=== PATIENT | male | born 1975 | race Caucasian/White ===

== ENCOUNTER 2017-04-18 16:35 | Emergency (ER) | payer MEDICAID ==
[~2017-04-18] VITALS: Ht 182.9 cm; Wt 76.2 kg
[~2017-04-18 16:35] MED LIST: BACITRACIN15 GM TOPIC; BUPROPION XL150 MG ORAL; GABAPENTIN400 MG ORAL; IBUPROFEN600 MG ORAL; KEPPRA500 M4 ORAL; KLONOPIN1 MG ORAL; TRAZODONE HCL150 MG ORAL; WELLBUTRIN SR100 MG ORAL
[2017-04-18 16:58] VITALS: BP 143/94
[2017-04-18] MEDS ORDERED: KLONOPIN1 MG ORAL (17:59)
[2017-04-18] MEDS ORDERED: WELLBUTRIN XL150 M1 ORAL (17:59)
[2017-04-18] MEDS ORDERED: KEPPRA500 M4 ORAL (17:59)
[2017-04-18 18:21] VITALS: BP 138/87
--- NOTE | 2017-04-18 22:50 | Emergency Room Report ---
History of Present Illness General Chief Complaint: Behavioral Complaint Source: Patient Present Illness HPI The patient is a 42-year-old male with a history of schizophrenia, depression, and seizure disorder presenting for hearing voices. He states that these voices are telling him to hurt himself but he declines wanting to hurt himself and denies suicidal ideation or homicidal ideation. He states he has not seen a psychiatrist for one month and has run out of medications for the past week. He is asking for medication refill. He declines any pain and denies other symptoms including nausea, vomiting, fever, chills Allergies: Coded Allergies: CHLORPROMAZINE (Verified Allergy, Unknown, 02/17/16) HALOPERIDOL (Verified Allergy, Unknown, 02/17/16) ZIPRASIDONE (Verified Allergy, Unknown, 02/17/16) QUETIAPINE (Unverified Adverse Reaction, Unknown, 01/12/16) Patient History Past Medical History: see triage record Pertinent Family History: none Reviewed Nursing Documentation: PMH: Agreed, PSxH: Agreed Nursing Documentation-PMH Past Medical History: No History, Except For Hx Cardiac Problems: No Hx Hypertension: No Hx Pacemaker: No Hx Asthma: No Hx COPD: No Hx Diabetes: No Hx Gastrointestinal Problems: No Hx Dialysis: No History Of Psychiatric Problem: Yes Hx Neurological Problems: No Hx Cerebrovascular Accident: No Hx Seizures: Yes Review of Systems All Other Systems: negative except mentioned in HPI Physical Exam Vital Signs Date Time Temp Pulse Resp B/P Pulse Ox O2 Delivery O2 Flow Rate FiO2 04/18/17 16:50 103 17 143/94 99 Room Air Sp02 EP Interpretation: reviewed, normal General Appearance: no apparent distress, alert, GCS 15, non-toxic Head: normocephalic, atraumatic Eyes: bilateral eye PERRL, bilateral eye normal inspection ENT: hearing grossly normal, normal pharynx, no angioedema, normal voice Respiratory: chest non-tender, lungs clear, normal breath sounds, speaking full sentences Musculoskeletal: back normal, gait/station normal, normal range of motion Neurologic: alert, oriented x3, responsive, sensory intact, normal gait Psychiatric: memory normal, no suicidal/homicidal ideation, depressed affect Skin: normal color, no rash, warm/dry, well hydrated Lymphatic: no adenopathy Medical Decision Making PA Attestation Dr. Tinoco is my supervising physician. Patient management was discussed with my supervising physician Diagnostic Impression: Primary Impression: Behavioral disorder ER Course The patient is a 42-year-old male with a history of schizophrenia, depression, and seizure disorder presenting for hearing voices Differential diagnoses considered but not limited to suicidal ideation, homicidal ideation, depression, drug abuse, psychosis PE: NAD. Depressed affect. A&Ox4. HEENT unremarkable. There are scars on bilateral arms from excoriations The patient is given refill of medications and told to follow up with psychiatry soon as possible. He is given information for [facility] urgent care. He agrees to seek care at this facility as soon as possible. ER precautions given Last Vital Signs Date Time Temp Pulse Resp B/P Pulse Ox O2 Delivery O2 Flow Rate FiO2 04/18/17 18:21 99 17 138/87 99 Room Air Status: improved Disposition: HOME, SELF-CARE Condition: Improved Scripts Clonazepam* (KLONOPIN*) 1 Mg Tablet 1 MG ORAL DAILY, #15 TAB 0 Refills Prov: SUDARSHAN MOONEY.A. 04/18/17 Bupropion HCl (Wellbutrin Xl) 300 Mg Tab.er.24h 150 MG ORAL DAILY, #30 TAB 0 Refills Prov: JANETANSUDARSHAN P.A. 04/18/17 Levetiracetam (KEPPRA) 500 Mg Tablet 500 MG ORAL EVERY 12 HOURS, #60 TAB 0 Refills Prov: TERROMIEANBRYANTY P.A. 04/18/17 Referrals: NOT CHOSEN [facility]/MD,REFERRING (PCP) Patient Instructions: Psychosis Additional Instructions: I discussed my findings with the patient. All questions and concerns have been answered. Treatment and medication compliance have been addressed. I advised the patient that they need to follow up with PMD in 3-5 days. Return to ED if symptoms worsen, new symptoms arise, or if needed for any reason. Patient verbalized understanding of discharge instructions. You were given information to followup at [facility] facility as soon as possible. SUDARSHAN MOONEY Apr 18, 2017 22:50
== END 2017-04-18 18:24 | disposition home or self-care (01) ==
LOC: EMR 17:40
DX: F91.9 Conduct disorder, unspecified (principal); F20.9 Schizophrenia, unspecified; F32.9 Major depressive disorder, single episode, unspecified; G40.909 Epilepsy, unspecified, not intractable, without status epilepticus; Z88.8 Allergy status to other drugs, medicaments and biological substances
CPT/HCPCS: 99284

== ENCOUNTER 2017-08-21 23:15 | Emergency (ER) | payer MEDICAID ==
[~2017-08-21] VITALS: Ht 182.9 cm; Wt 81.6 kg
[~2017-08-21 23:15] MED LIST changes: +WELLBUTRIN XL150 M1 ORAL
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
[2017-08-21 23:46] VITALS: BP 129/78
[2017-08-22] MEDS ORDERED: LORazepam 1mg tab ORAL ONE (00:15)
[2017-08-22 00:53] VITALS: BP 132/70
== END 2017-08-22 00:54 | disposition home or self-care (01) ==
LOC: EDBD 23:15 → EMR 08-22 00:34
DX: S51.802A Unspecified open wound of left forearm, initial encounter (principal); S51.801A Unspecified open wound of right forearm, initial encounter; Y04.2XXA Assault by strike against or bumped into by another person, initial encounter; Y92.410 Unspecified street and highway as the place of occurrence of the external cause; Z88.8 Allergy status to other drugs, medicaments and biological substances
CPT/HCPCS: 99283

== ENCOUNTER 2017-10-07 18:13 | Emergency (ER) | payer MEDICAID, OTHER ==
[~2017-10-07] VITALS: Ht 182.9 cm; Wt 81.6 kg
[2017-10-07] MEDS ORDERED: LORazepam 1mg tab ORAL ONE (18:30)
[2017-10-07] MEDS ORDERED: Bacitracin Oint UD TOPIC ONE (19:45)
[2017-10-07] MEDS ORDERED: ATIVAN0.5 MG ORAL (19:48)
[2017-10-07] MEDS ORDERED: BACITRACIN15 GM TOPIC (19:48)
[2017-10-07 20:03] VITALS: BP 141/87
[2017-10-07 20:04] VITALS: BP 123/80
--- NOTE | 2017-10-07 22:13 | Emergency Room Report ---
History of Present Illness General Chief Complaint: Wound Recheck/Suture Removal Source: Patient, EMS Present Illness HPI The patient is a 42 -year-old male presenting for anxiety and wound check. He has been seen in this emergency department multiple times for the same complaints. The patient picks his skin on his forearms when he is feeling anxious. He states he was unable to see his psychiatrist. He denies any pain at this time. He does admit to itching forearms. He denies any other symptoms including N, V, F, chills, SOB, numbness Allergies: Coded Allergies: CHLORPROMAZINE (Verified Allergy, Unknown, 02/17/16) DIVALPROEX SODIUM (Unverified Allergy, Unknown, 08/21/17) HALOPERIDOL (Verified Allergy, Unknown, 02/17/16) OLANZAPINE (Unverified Allergy, Unknown, 10/07/17) ZIPRASIDONE (Verified Allergy, Unknown, 02/17/16) QUETIAPINE (Unverified Adverse Reaction, Unknown, 01/12/16) Patient History Past Medical History: see triage record, psych hx Pertinent Family History: none Reviewed Nursing Documentation: PMH: Agreed, PSxH: Agreed Nursing Documentation-PMH Past Medical History: No History, Except For Hx Cardiac Problems: No Hx Hypertension: No Hx Pacemaker: No Hx Asthma: No Hx COPD: No Hx Diabetes: No Hx Gastrointestinal Problems: No Hx Dialysis: No History Of Psychiatric Problem: Yes - Anxiety Hx Neurological Problems: No Hx Cerebrovascular Accident: No Hx Seizures: Yes Review of Systems All Other Systems: negative except mentioned in HPI Physical Exam Vital Signs Date Time Temp Pulse Resp B/P (MAP) Pulse Ox O2 Delivery O2 Flow Rate FiO2 10/07/17 18:05 98.2 81 16 123/80 99 Sp02 EP Interpretation: reviewed, normal General Appearance: no apparent distress, alert, GCS 15, non-toxic Head: normocephalic, atraumatic Eyes: bilateral eye normal inspection, bilateral eye PERRL ENT: hearing grossly normal, normal pharynx, no angioedema, normal voice Respiratory: chest non-tender, lungs clear, normal breath sounds, speaking full sentences Cardiovascular #1: regular rate, rhythm, no edema Musculoskeletal: back normal, gait/station normal, normal range of motion, tender - bilat arms Neurologic: alert, oriented x3, responsive, motor strength/tone normal, sensory intact, speech normal Psychiatric: judgement/insight normal, memory normal, anxious Skin: other - bilat lateral forearms have open wounds Lymphatic: no adenopathy Medical Decision Making PA Attestation Dr. Maldonado is my supervising physician. Patient management was discussed with my supervising physician Diagnostic Impression: Primary Impression: Acute anxiety Additional Impression: Open wound ER Course The patient is a 42 -year-old male presenting for anxiety and wound check Ddx considered include but not limited to cellulitis, abrasion, chronic open wound, anxiety, among others PE: Afebrile. NAD Bilateral forearms have chronic open wounds of the lateral aspects. No bleeding. No discharge.Full active range of motion of the wrist and fingers are intact The patient is given Benadryl and Ativan to control itching and to help with anxiety in the emergency department. He is feeling better. The wounds are cleaned and bacitracin was applied He is discharged home and is to follow up with psychiatry. He is given information for [facility]. ER precautions are given Last Vital Signs Date Time Temp Pulse Resp B/P (MAP) Pulse Ox O2 Delivery O2 Flow Rate FiO2 10/07/17 20:04 98.2 16 123/80 99 10/07/17 20:03 88 Status: improved Disposition: HOME, SELF-CARE Condition: Improved Scripts Lorazepam* (ATIVAN*) 0.5 Mg Tablet 0.5 MG ORAL THREE TIMES A DAY, #5 TAB Prov: SUDARSHAN MOONEY.A. 10/07/17 Bacitracin (Bacitracin) 28.4 Gm Oint...g. 1 APPLIC TOPIC THREE TIMES A DAY, #28 GM Prov: SUDARSHAN MOONEY.A. 10/07/17 Referrals: NOT CHOSEN IPA/MD,REFERRING (PCP) Patient Instructions: Panic Attacks, Wound Check Additional Instructions: I discussed my findings with the patient. All questions and concerns have been answered. Treatment and medication compliance have been addressed. Return to ED if symptoms worsen, new symptoms arise, or if needed for any reason. Patient verbalized understanding of discharge instructions. The patient was told he needs to followup with psychiatry and primary doctor soon as possible SUDARSHAN MOONEY Oct 07, 2017 22:13
== END 2017-10-07 20:04 | disposition home or self-care (01) ==
LOC: EDBD 18:13 → EMR 19:50
DX: F41.9 Anxiety disorder, unspecified (principal); S51.802D Unspecified open wound of left forearm, subsequent encounter; S51.801D Unspecified open wound of right forearm, subsequent encounter; X58.XXXD Exposure to other specified factors, subsequent encounter; Z88.8 Allergy status to other drugs, medicaments and biological substances
CPT/HCPCS: 99284

== ENCOUNTER 2018-05-08 17:20 | Emergency (ER) | payer OTHER ==
[~2018-05-08] VITALS: Ht 172.7 cm; Wt 63.5 kg
[~2018-05-08 17:20] MED LIST changes: +ATIVAN0.5 MG ORAL
[2018-05-08 17:31] VITALS: BP 98/57
[2018-05-08] MEDS ORDERED: Haloperidol 5mg/ml Inj ONE (17:43)
[2018-05-08] MEDS ORDERED: LORazepam Inj 2mg/ml 1ml ONE (17:44)
--- NOTE | 2018-05-08 17:56 | Emergency Room Report ---
History of Present Illness General Chief Complaint: Behavioral Complaint Source: Patient Present Illness HPI 43-year-old male has a history of anxiety and depression, bipolar disorder, presenting with suicidal ideation. EMS states that they've found him outside a [employer] store, he was using a nail to cut himself. Patient currently stating that voices are telling him to kill himself and that he wants to kill himself. No actual plan but states that he wants to continue cutting himself because he feels very anxious. Tetanus is up-to-date Allergies: Coded Allergies: CHLORPROMAZINE (Verified Allergy, Unknown, 02/17/16) DIVALPROEX SODIUM (Unverified Allergy, Unknown, 08/21/17) HALOPERIDOL (Verified Allergy, Unknown, 02/17/16) OLANZAPINE (Unverified Allergy, Unknown, 10/07/17) ZIPRASIDONE (Verified Allergy, Unknown, 02/17/16) QUETIAPINE (Unverified Adverse Reaction, Unknown, 01/12/16) Patient History Past Medical History: see triage record Past Surgical History: none Pertinent Family History: none Reviewed Nursing Documentation: PMH: Agreed; PSxH: Agreed Nursing Documentation-PMH Past Medical History: No History, Except For Hx Cardiac Problems: No Hx Hypertension: No Hx Pacemaker: No Hx Asthma: No Hx COPD: No Hx Diabetes: No Hx Cancer: No Hx Gastrointestinal Problems: No Hx Dialysis: No History Of Psychiatric Problem: Yes - Schizophrenia, Bipolar Hx Neurological Problems: No Hx Cerebrovascular Accident: No Hx Seizures: No Review of Systems All Other Systems: negative except mentioned in HPI Physical Exam Vital Signs Date Time Temp Pulse Resp B/P (MAP) Pulse Ox O2 Delivery O2 Flow Rate FiO2 05/08/18 17:24 97.5 95 14 98/57 96 Room Air 97.5 Sp02 EP Interpretation: reviewed, normal General Appearance: normal inspection, well appearing, no apparent distress, alert, GCS 15, non-toxic Head: normocephalic, atraumatic Eyes: bilateral eye normal inspection, bilateral eye PERRL, bilateral eye EOMI ENT: normal ENT inspection, normal pharynx, normal voice, moist mucus membranes Neck: normal inspection, full range of motion, supple Respiratory: normal inspection, lungs clear, normal breath sounds, no respiratory distress, no retraction, no wheezing, speaking full sentences, chest symmetrical Cardiovascular #1: normal inspection, regular rate, rhythm, normal capillary refill Cardiovascular #2: 2+ radial (R), 2+ radial (L) Gastrointestinal: normal inspection, non tender, soft, non-distended, no guarding Genitourinary: no CVA tenderness Musculoskeletal: other - Bilateral arms with new and old scars, right forearm noted to have a large 6 cm linear superficial laceration, left forearm noted to have a 3 cm superficial laceration/abrasion, also with old healed scars on bilateral arms Neurologic: normal inspection, alert, oriented x3, responsive, motor strength/ tone normal, sensory intact, normal gait, speech normal Psychiatric: depressed affect, anxious, other - +si Skin: normal inspection, normal color, no rash, warm/dry, well hydrated, normal turgor Medical Decision Making Diagnostic Impression: Primary Impression: Suicidal ideation Additional Impressions: Self-inflicted injury Superficial laceration ER Course 43-year-old male with suicidal ideation also noted to have multiple cuts on arms DDX: Suicidal ideation, superficial abrasions Plan: Patient on 5150 hold, we will perform routine labs, wound care, bacitracin, sterile dressing, antibiotics ER course: Patient given 2 mg IM Ativan labs unremarkable Disposition: Signed out to Dr Hendrickson 43 yo M with SI, on hold pending placement patient is medically cleared Please note that this Emergency Department Report was dictated using [employer] technology software, occasionally this can lead to erroneous entry secondary to interpretation by the dictation equipment Laboratory Tests Test 05/08/18 18:15 White Blood Count 6.7 K/UL (4.8-10.8) Red Blood Count 5.12 M/UL (4.70-6.10) Hemoglobin 10.1 G/DL (14.2-18.0) L Hematocrit 33.4 % (42.0-52.0) L Mean Corpuscular Volume 65 FL (80-99) L Mean Corpuscular Hemoglobin 19.7 PG (27.0-31.0) L Mean Corpuscular Hemoglobin Concent 30.2 G/DL (32.0-36.0) L Red Cell Distribution Width 16.3 % (11.6-14.8) H Platelet Count 446 K/UL (150-450) Mean Platelet Volume 4.8 FL (6.5-10.1) L Neutrophils (%) (Auto) 58.3 % (45.0-75.0) Lymphocytes (%) (Auto) 29.8 % (20.0-45.0) Monocytes (%) (Auto) 6.9 % (1.0-10.0) Eosinophils (%) (Auto) 4.4 % (0.0-3.0) H Basophils (%) (Auto) 0.6 % (0.0-2.0) Urine Color Pale yellow Urine Appearance Clear Urine pH 5 (4.5-8.0) Urine Specific [place] 1.015 (1.005-1.035) Urine Protein Negative (NEGATIVE) Urine Glucose (UA) Negative (NEGATIVE) Urine Ketones Negative (NEGATIVE) Urine Occult Blood 1+ (NEGATIVE) H Urine Nitrite Negative (NEGATIVE) Urine Bilirubin Negative (NEGATIVE) Urine Urobilinogen Normal MG/DL (0.0-1.0) Urine Leukocyte Esterase Negative (NEGATIVE) Urine RBC 0-2 /HPF (0 - 0) H Urine WBC 0-2 /HPF (0 - 0) Urine Squamous Epithelial Cells None /LPF (NONE/OCC) Urine Bacteria Few /HPF (NONE) Sodium Level 134 MMOL/L (136-145) L Potassium Level 3.9 MMOL/L (3.5-5.1) Chloride Level 100 MMOL/L (98-107) Carbon Dioxide Level 27 MMOL/L (21-32) Anion Gap 8 mmol/L (5-15) Blood Urea Nitrogen 13 mg/dL (7-18) Creatinine 0.8 MG/DL (0.55-1.30) Estimate Glomerular Filtration Rate > 60 mL/min (>60) Glucose Level 97 MG/DL (74-106) Calcium Level 9.5 MG/DL (8.5-10.1) Total Bilirubin 0.2 MG/DL (0.2-1.0) Aspartate Amino Transferase (AST) 51 U/L (15-37) H Alanine Aminotransferase (ALT) 86 U/L (12-78) H Alkaline Phosphatase 86 U/L (46-116) Total Creatine Kinase 217 U/L (26-308) Total Protein 9.5 G/DL (6.4-8.2) H Albumin 3.9 G/DL (3.4-5.0) Globulin 5.6 g/dL Albumin/Globulin Ratio 0.7 (1.0-2.7) L Salicylates Level 0.9 ug/mL (2.8-20) L Urine Opiates Screen Negative (NEGATIVE) Acetaminophen Level < 2 MCG/ML (10-30) L Urine Barbiturates Screen Negative (NEGATIVE) Phencyclidine (PCP) Screen Negative (NEGATIVE) Urine Amphetamines Screen Positive (NEGATIVE) H Urine Benzodiazepines Screen Negative (NEGATIVE) Urine Cocaine Screen Negative (NEGATIVE) Urine Marijuana (THC) Screen Negative (NEGATIVE) Serum Alcohol < 3 mg/dL Last Vital Signs Date Time Temp Pulse Resp B/P (MAP) Pulse Ox O2 Delivery O2 Flow Rate FiO2 05/08/18 17:31 97.5 76 14 98/57 98 Room Air 97.5 Disposition: XFER SHT-TRM HOSP Condition: Serious Referrals: NOT CHOSEN MARYCARMEN/,REFERRING (PCP) Felipa Maldonado M.D. May 08, 2018 17:56
[2018-05-08] MEDS ORDERED: LORazepam Inj 2mg/ml 1ml IM ONE (18:00)
[2018-05-08] MEDS ORDERED: ceFAZolin sod 1 GM in D5W 110 ML IVPB SCH (18:00)
[2018-05-08] MEDS ORDERED: ceFAZolin 1gm/50ml Premix 50 ML IV ONE (18:00)
[2018-05-08] MEDS ORDERED: DiphenhydrAMINE 50mg/ml Inj ONE (18:06)
[2018-05-08] MEDS ORDERED: DiphenhydrAMINE 50mg/ml Inj IVP ONE (18:15)
[2018-05-08 18:46] LABS: APPEARANCE,URINE CLEAR; BASOPHILS % (AUTO) 0.6 % (0.0-2.0); BILIRUBIN, URINE NEGATIVE (NEGATIVE); COLOR,URINE PALE YELLOW; EOSINOPHILS % (AUTO) 4.4 % (0.0-3.0); GLUCOSE, URINE (UA) NEGATIVE (NEGATIVE); HEMATOCRIT 33.4 % (42.0-52.0); HEMOGLOBIN 10.1 G/DL (14.2-18.0); KETONES,URINE NEGATIVE (NEGATIVE); LEUKOCYTE ESTERASE ,URINE NEGATIVE (NEGATIVE); LYMPHOCYTES % (AUTO) 29.8 % (20.0-45.0); MEAN CORPUSCULAR VOLUME 65 FL (80-99); MONOCYTES % (AUTO) 6.9 % (1.0-10.0); NEUTROPHILS % (AUTO) 58.3 % (45.0-75.0); NITRITE,URINE NEGATIVE (NEGATIVE); PH,URINE 5 (4.5-8.0); PLATELET COUNT 446 K/UL (150-450); PROTEIN,URINE NEGATIVE (NEGATIVE); RED BLOOD COUNT 5.12 M/UL (4.70-6.10); RED CELL DISTRIBUTION WIDTH 16.3 % (11.6-14.8); UROBILINOGEN,URINE NORMAL MG/DL (0.0-1.0); WHITE BLOOD COUNT 6.7 K/UL (4.8-10.8)
[2018-05-08 18:53] LABS: ANION GAP 8 mmol/L (5-15); BLOOD UREA NITROGEN 13 mg/dL (7-18); CALCIUM 9.5 MG/DL (8.5-10.1); CARBON DIOXIDE 27 MMOL/L (21-32); CHLORIDE 100 MMOL/L (98-107); CREATININE 0.8 MG/DL (0.55-1.30); POTASSIUM 3.9 MMOL/L (3.5-5.1); SODIUM 134 MMOL/L (136-145)
[2018-05-08 18:57] LABS: ALANINE AMINOTRANSFERASE 86 U/L (12-78); ALBUMIN 3.9 G/DL (3.4-5.0); ALBUMIN/GLOBULIN RATIO 0.7 (1.0-2.7); ALKALINE PHOSPHATASE 86 U/L (46-116); ASPARTATE AMINO TRANSFERASE 51 U/L (15-37); BILIRUBIN,TOTAL 0.2 MG/DL (0.2-1.0); CREATINE KINASE 217 U/L (26-308)
[2018-05-08 20:12] VITALS: BP 102/45
[2018-05-08 23:00] VITALS: BP 112/56
[2018-05-09 00:04] VITALS: BP 107/52
[2018-05-09 03:00] VITALS: BP 113/60
[2018-05-09 05:45] VITALS: BP 107/65
[2018-05-09 07:20] VITALS: BP 110/68
[2018-05-09] MEDS ORDERED: Bacitracin Oint UD TOPIC ONE (09:30)
[2018-05-09 11:55] VITALS: BP 118/60
[2018-05-09 12:29] VITALS: BP 118/60
== END 2018-05-09 12:30 | disposition short-term general hospital (02) ==
LOC: EDBD 17:20 → EMR 17:32
DX: R45.851 Suicidal ideations (principal); S51.812A Laceration without foreign body of left forearm, initial encounter; X83.8XXA Intentional self-harm by other specified means, initial encounter; Y92.89 Other specified places as the place of occurrence of the external cause; F20.9 Schizophrenia, unspecified; F31.9 Bipolar disorder, unspecified
CPT/HCPCS: 36415; 80053; 80307; 81003; 82550; 85025; 96365; 96372; 96374; 96375; 99284; G0480; J0690; J1200; 80329

== ENCOUNTER 2018-05-31 16:00 | Emergency (ER) | payer SELFPAY ==
[~2018-05-31] VITALS: Ht 175.3 cm; Wt 77.1 kg
[2018-05-31 16:00] VITALS: BP 126/80
[~2018-05-31 16:00] MED LIST changes: +BUPROPION XL300 MG ORAL; +KEPPRA XR500 MG ORAL
[2018-05-31 16:45] VITALS: BP 126/80
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
[2018-05-31] MEDS ORDERED: BACITRACIN-P28.35 GM TP (16:46)
== END 2018-05-31 16:45 | disposition home or self-care (01) ==
LOC: EDBD 16:00 → MERGE 16:30 → EMR 16:30
DX: L98.1 Factitial dermatitis (principal); F91.8 Other conduct disorders
CPT/HCPCS: 99283

== ENCOUNTER 2020-03-01 01:27 | Emergency (ER) | payer SELFPAY ==
[~2020-03-01] VITALS: Ht 177.8 cm; Wt 81.6 kg
[~2020-03-01 01:27] MED LIST changes: +BACITRACIN-P28.35 GM TP
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
--- NOTE | 2020-03-01 01:45 | NUR ---
ED Nurse Note: PT BELONGING REMOVED AND PLACED IN LOCKER #1.
[2020-03-01 02:00] VITALS: BP 139/88
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
[2020-03-01] MEDS ORDERED: LORazepam Inj 2mg/ml 1ml IV ONE (02:15)
[2020-03-01] MEDS ORDERED: LORazepam 1mg tab ORAL ONE (02:15)
[2020-03-01] MEDS ORDERED: Bacitracin Oint 15gm Tube TOPIC ONE ×2 (03:30→07:16)
--- NOTE | 2020-03-01 03:30 | NUR ---
ED Nurse Note: urine collected and sent to lab
--- NOTE | 2020-03-01 03:40 | NUR ---
ED Nurse Note: patient is calm and sleeping. could not collect blood at this time. will attempt at a later time.
[2020-03-01 03:50] LABS: APPEARANCE,URINE CLEAR; BILIRUBIN, URINE NEGATIVE (NEGATIVE); GLUCOSE, URINE (UA) NEGATIVE (NEGATIVE); KETONES,URINE 1+ (NEGATIVE); LEUKOCYTE ESTERASE ,URINE 1+ (NEGATIVE); NITRITE,URINE NEGATIVE (NEGATIVE); PH,URINE 5 (4.5-8.0); PROTEIN,URINE NEGATIVE (NEGATIVE); UROBILINOGEN,URINE NORMAL MG/DL (0.0-1.0)
[2020-03-01 03:51] LABS: COLOR,URINE YELLOW
--- NOTE | 2020-03-01 04:05 | NUR ---
ED Nurse Note: blood drawn and sent to lab
[2020-03-01 04:43] LABS: BASOPHILS % (AUTO) 0.7 % (0.0-2.0); EOSINOPHILS % (AUTO) 3.5 % (0.0-3.0); HEMATOCRIT 31.8 % (42.0-52.0); HEMOGLOBIN 10.3 G/DL (14.2-18.0); LYMPHOCYTES % (AUTO) 28.4 % (20.0-45.0); MEAN CORPUSCULAR VOLUME 71 FL (80-99); MONOCYTES % (AUTO) 8.9 % (1.0-10.0); NEUTROPHILS % (AUTO) 58.6 % (45.0-75.0); PLATELET COUNT 333 K/UL (150-450); RED BLOOD COUNT 4.45 M/UL (4.70-6.10); RED CELL DISTRIBUTION WIDTH 15.7 % (11.6-14.8)
[2020-03-01 04:46] LABS: ANION GAP 9 mmol/L (5-15); BLOOD UREA NITROGEN 14 mg/dL (7-18); CALCIUM 8.8 MG/DL (8.5-10.1); CARBON DIOXIDE 27 MMOL/L (21-32); CHLORIDE 103 MMOL/L (98-107); CREATININE 0.8 MG/DL (0.55-1.30); POTASSIUM 3.6 MMOL/L (3.5-5.1); SODIUM 138 MMOL/L (136-145)
[2020-03-01 04:54] LABS: ALANINE AMINOTRANSFERASE 139 U/L (12-78); ALBUMIN 3.5 G/DL (3.4-5.0); ALBUMIN/GLOBULIN RATIO 0.8 (1.0-2.7); ALKALINE PHOSPHATASE 80 U/L (46-116); ASPARTATE AMINO TRANSFERASE 84 U/L (15-37); BILIRUBIN,TOTAL 0.2 MG/DL (0.2-1.0)
[2020-03-01 06:00] VITALS: BP 135/73
--- NOTE | 2020-03-01 06:00 | NUR ---
ED Nurse Note: PATIENT IS CALM AND SLEEPING. VSS, NAD.
--- NOTE | 2020-03-01 07:05 | NUR ---
ED Nurse Note: gave report to Jyotsna Paiz RN. Endorsed plan of care.
[2020-03-01] MEDS ORDERED: Bacitracin Oint UD TOPIC ONE (07:14)
[2020-03-01 07:28] VITALS: BP 132/74
--- NOTE | 2020-03-01 07:28 | NUR ---
ED Nurse Note: Received pt from Fritz Hamlin RN pt on bed, asleep. VSS, on RA, NAD noted; will continue to monitor.
--- NOTE | 2020-03-01 08:58 | NUR ---
ED Nurse Note: ERMD and charge nurse at bedside.
--- NOTE | 2020-03-01 12:50 | NUR ---
ED Nurse Note: sandwich and apple juice offered to pt.
[2020-03-01 13:06] VITALS: BP 136/78
--- NOTE | 2020-03-01 17:00 | NUR ---
ED Nurse Note: Pt on bed, awake and alert, VSS, on RA, NAD noted. will continue to monitor
[2020-03-01 19:10] VITALS: BP 130/80
--- NOTE | 2020-03-01 19:10 | NUR ---
ED Nurse Note: report received from Jyotsna Neal RN. pt in bed resting with eyes closed. no acute distress is noted. VSS as documented
[2020-03-01 21:20] VITALS: BP 128/82
--- NOTE | 2020-03-01 21:21 | NUR ---
ED Nurse Note: pt in bed resting with eyes closed. no acute distress is noted at this time. VSS as documented.
--- NOTE | 2020-03-01 22:08 | NUR ---
ED Nurse Note: Dr Childress and Sabrina from PET here assessing PT.
--- NOTE | 2020-03-01 22:21 | NUR ---
ED Nurse Note: pt is now placed on 5150 hold by the PET.
--- NOTE | 2020-03-01 22:33 | NUR ---
Spoke with intake at [facility], they have beds, 5150 hold, face sheet and MD dictation faxed to [phone] as requested.
--- NOTE | 2020-03-01 23:05 | NUR ---
ED Nurse Note: report given to EDWIN michael. endorsed plan of care
--- NOTE | 2020-03-01 23:10 | NUR ---
ED Nurse Note: Report received from EDWIN Ritter. Pt is resting in bed, NAD. Will continue to monitor.
--- NOTE | 2020-03-02 01:00 | NUR ---
Checked with [employer], they have received the faxes and reviewing them. Will call us back.
--- NOTE | 2020-03-02 02:00 | NUR ---
ED Nurse Note: Pt appears to be sleeping at this time. No acute distress noted. RN bedside. Safety measures in place.
--- NOTE | 2020-03-02 04:00 | NUR ---
ED Nurse Note: Pt is resting in bed with eyes closed. No acute distress or uncooperative behavior at ths time. Will cont. to monitor.
[2020-03-02 05:30] VITALS: BP 113/67
--- NOTE | 2020-03-02 05:30 | NUR ---
ED Nurse Note: Vital signs assessed, pt follows commands and is acting appropriately. VSS as charted and no acute distress noted. RN bedside for safety, will continue to monitor.
--- NOTE | 2020-03-02 05:39 | NUR ---
Spoke with [facility]- no beds at this time, states in a few hours there will be discharges and available beds. She will pass information to new shift.
--- NOTE | 2020-03-02 11:46 | NUR ---
ED Nurse Note:pt. is in the room no complains, mostly asleep, ate breakfast
[2020-03-02 11:47] VITALS: BP 118/69
[2020-03-02 12:25] VITALS: BP 118/69
--- NOTE | 2020-03-02 12:25 | NUR ---
ED Nurse Note:pt. was cleared for d/c by dr. Diallo, pt. received d/c instructions with bus card, he is A/Ox3, ambulatory with steady gait, VSS, left ER with all his belongings
--- NOTE | 2020-03-02 22:45 | Consultation ---
DATE OF CONSULTATION: HISTORY OF PRESENT ILLNESS: This is a 45-year-old male with a history of addiction who has been admitted to the hospital. He stated that he was suicidal. He was placed on a hold, later on during the evaluation by the ER doctor, he stated that he had been saying suicidal because he wanted to spend a night in a hospital and sleep. He is in fact not suicidal and would like to be discharged and go to the [place] area. Patient is not endorsing any depressive, manic or psychotic symptoms. No suicidal or homicidal ideation noted. Patient has been calm in the hospital. He has been regularly using methamphetamine. PAST PSYCHIATRIC HISTORY: As stated has a history of schizophrenia and has been hospitalized in the past. He is not taking any medications, not seeing any psychiatrist on a regular basis. PAST MEDICAL HISTORY: Nonsignificant. ALLERGIES: No known drug allergies. SUBSTANCE USE HISTORY: Significant for crystal meth. MENTAL STATUS EXAMINATION: Patient is alert, oriented to times, self, place, situation, and date. Mood is neutral. Affect is full range, congruent with mood. Thought process is linear and goal oriented. Thought content, no suicidal or homicidal ideation. Cognition is intact. Insight and judgment fair. ASSESSMENT: AXIS I: Methamphetamine dependence. AXIS II: Deferred. AXIS III: Seizure. AXIS IV: Low. AXIS V: 50. PLAN: Patient should be discharged after he is medically cleared and he is not an imminent danger to self or others. Rubén Diallo M.D. DR: Louie JOB#: [id number] CC:
== END 2020-03-02 12:25 | disposition home or self-care (01) ==
LOC: EMR 02:08 → EDBD 02:08 → EMR 03-02 12:25
DX: F91.9 Conduct disorder, unspecified (principal); F15.90 Other stimulant use, unspecified, uncomplicated; F31.9 Bipolar disorder, unspecified; F20.9 Schizophrenia, unspecified; F41.9 Anxiety disorder, unspecified; F32.9 Major depressive disorder, single episode, unspecified; Z88.8 Allergy status to other drugs, medicaments and biological substances
CPT/HCPCS: 36415; 80053; 80307; 81003; 85025; 99284; G0480